=== PATIENT | female | born 1940 | race Caucasian/White ===

== ENCOUNTER 2023-12-25 09:39 | Emergency (ER) | payer MEDICARE, BC, SELFPAY ==
[2023-12-25 09:45] VITALS: BP 154/73; PULSE 76; RESP 18; TEMP 36.4; O2SAT 98; BMI 19.9
--- NOTE | 2023-12-25 10:12 | CRLHL7_ITS ---
For Patients: As a result of the Century Cures Act, medical imaging exams and procedure reports are released immediately into your electronic medical record. You may view this report before your referring provider. If you have questions, please contact your health care provider. INDICATION: Acute stroke, right arm weakness, dizziness. TECHNIQUE: CTA head with contrast bolus tracking, 3D angiographic rendering using maximum intensity projection (MIP) and images permanently archived. FINDINGS: There is scattered intracranial atherosclerotic disease. Right MCA and superior hypophyseal left ICA infundibula are noted, anatomic variants. The right A1 segment is hypoplastic. There is otherwise normal opacification of the intracranial vasculature. There is no large vessel occlusion. IMPRESSION: No large vessel occlusion; no acute intracranial abnormality at CTA. Please note that all CT scans at this facility use dose modulation, iterative reconstruction, and/or weight-based dosing when appropriate to reduce radiation dose to as low as reasonably achievable. Dictated by Santo Posadas MD @ 12/25/2023 2:56:04 PM (Electronically Signed)
--- NOTE | 2023-12-25 10:12 | CRLHL7_ITS ---
For Patients: As a result of the Century Cures Act, medical imaging exams and procedure reports are released immediately into your electronic medical record. You may view this report before your referring provider. If you have questions, please contact your health care provider. INDICATION: Acute stroke, right arm weakness, dizziness. TECHNIQUE: CTA neck with contrast bolus tracking, 3D angiographic rendering using maximum intensity projection (MIP) and images permanently archived. FINDINGS: There is minor bilateral carotid atherosclerosis. Both internal carotid arteries are tortuous and redundant. There is no significant carotid artery stenosis or dissection. There is no significant vertebral artery stenosis or dissection. The soft tissues of the neck are within normal limits. The cervical spine is in normal alignment. Degenerative changes are noted in the cervical spine. IMPRESSION: No significant carotid or vertebral artery stenosis or dissection. Please note that all CT scans at this facility use dose modulation, iterative reconstruction, and/or weight-based dosing when appropriate to reduce radiation dose to as low as reasonably achievable. Dictated by Santo Posadas MD @ 12/25/2023 2:57:24 PM (Electronically Signed)
--- NOTE | 2023-12-25 10:13 | CRLHL7_ITS ---
For Patients: As a result of the Century Cures Act, medical imaging exams and procedure reports are released immediately into your electronic medical record. You may view this report before your referring provider. If you have questions, please contact your health care provider. INDICATION: DIZZINESS, RT ARM WEAKNESS THAT IS IMPROVED. TECHNIQUE: CT head without contrast. COMPARISON: None. FINDINGS: CSF spaces: Within normal limits for age. Brain parenchyma and extra-axial spaces: There is subtle asymmetric hyperdensity of the left posterior thalamus without evident associated peripheral hypodensity or mass effect to suggest the presence of an acute hemorrhage, favored to reflect asymmetric age-related mineralization. The grewal-white differentiation is normal. No sign of mass or midline shift. No extra-axial fluid collection. Skull base and calvarium: The visualized paranasal sinuses and mastoid air cells demonstrate no acute or significant findings. The visualized orbits are grossly unremarkable. No skull fractures. IMPRESSION: No convincing evidence of an acute intracranial hemorrhage, infarct, or mass effect by noncontrast CT. Please note that all CT scans at this facility use dose modulation, iterative reconstruction, and/or weight-based dosing when appropriate to reduce radiation dose to as low as reasonably achievable. Dictated by Ethan Chanel MD @ 12/25/2023 11:32:47 AM (Electronically Signed)
--- NOTE | 2023-12-25 10:17 | ED_ITS ---
HPI - General Adult General Date Seen: 12/25/23 Chief complaint: Dizziness/Vertigo Stated complaint: c/o stroke, dizzy spells, RT arm weakness Time Seen by Provider: 12/25/23 10:01 Source: patient Mode of arrival: ambulatory Limitations: no limitations History of Present Illness HPI narrative: Patient is an 83-year-old female with history of episode of AFib 3 months ago currently on warfarin but no recurrent AFib that she is aware of presenting to the emergency department for dizziness and right arm weakness. She states last night she got up 3 separate times, which is normal for her, and had dizziness with each 1 she states the 1st 1 was severe dizziness lasting about 30 seconds that improved. The next 2 were not nearly as bad she states. She states today she still feels some dizziness with standing up or head movement. She also states she woke up about 06:00 with the right arm weakness that she states was persistent until she got to the emergency department which now she says it is improving significantly. Describes the weakness as her arm feeling heavy but she was able to move it. She last checked INR a week ago and was 2.5. Has had issues of dizziness before and was an inner ear issue which she was given Antivert which improved her symptoms. She states she called the triage line was told to come to emergency department. She is unaware what time her last normal was for both the dizziness and the right long weakness. Denies fevers, chills, chest pain, shortness of breath, abdominal pain, diarrhea, headache, vision changes, numbness. Related Data Home Medications ?Medication ?Instructions ?Recorded ?Confirmed atenolol 25 mg tablet 25 mg PO BID 12/25/23 12/25/23 warfarin 2 mg tablet 5 mg PO DAILY 12/25/23 12/25/23 Previous Rx's ?Medication ?Instructions ?Recorded meclizine 25 mg tablet 25 mg PO QID PRN Dizziness #20 tabs 12/25/23 Allergies Allergy/AdvReac Type Severity Reaction Status Date / Time No Known Drug Allergies Allergy Verified 12/25/23 11:01 Review of Systems Status of ROS: Reports: 10 or more systems reviewed and unremarkable except as noted in History and below PFSH PFSH Social History Smoking Status: Never smoker Do you use any of these nicotine containing products: None How often do you have a drink containing alcohol: never How often do you have six or more drinks on one occasion: Never AUDIT-C Alcohol total score: 0 Non-prescribed substance use: denies use service: No Exam Narrative: Exam Narrative: Const: Well-nourished, Well-developed, in mild distress Eyes: PERRL, no conjunctival injection, and symmetrical lids HENT: Atraumatic external nose and ears. Moist mucous membranes. Neck: Symmetric, trachea midline, No thyromegaly. CVS: RRR, No murmurs or gallops. Peripheral pulses 2+ and equal in all extremities RESP: Unlabored respiratory effort. Clear to auscultation bilaterally. GI: Nontender/Nondistended, No rebound or guarding. MSK:Extremities w/o deformity, Normal Active ROM Skin: Warm, Dry. No rashes or lesions. Neuro: Normal Muscle tone, Cranial nerves 2-12 grossly intact, normal heel-to- perez, normal [id number], normal gait, normal strength 5/5 upper lower extremities bilaterally, normal sensation upper and lower extremities bilaterally, normal rapid alternating movements. NIH stroke scale 0 Psych: Awake, Alert, & Oriented x3. Appropriate mood and affect. Const: Vital Signs, click to edit/add: Vital Signs - 24 hr 12/25/23 09:45 12/25/23 12:00 12/25/23 13:59 Temperature 97.5 F L Pulse Rate [Right Pulse Oximeter] 76 72 76 Respiratory Rate 18 18 16 Blood Pressure [Ri ght Upper Arm] 154/73 H 140/75 H 154/78 H Pulse Oximetry 98 98 95 Oxygen Delivery Me thod Room Air Room Air Room Air Course Vital Signs Vital signs: Initial Vital Signs Temperature 97.5 F L 12/25/23 09:45 Temperature Source Temporal Artery Scan 12/25/23 09:45 Pulse Rate 76 12/25/23 09:45 Respiratory Rate 18 12/25/23 09:45 Blood Pressure 154/73 H 12/25/23 09:45 Blood Pressure Mean 100 12/25/23 09:45 Blood Pressure Position Sitting 12/25/23 09:45 Pulse Oximetry 98 12/25/23 09:45 Oxygen Delivery Method Room Air 12/25/23 09:45 Vital Signs Temperature 97.5 F L 12/25/23 09:45 Pulse Rate 76 12/25/23 09:45 Respiratory Rate 18 12/25/23 09:45 Blood Pressure 154/73 H 12/25/23 09:45 Pulse Oximetry 98 12/25/23 09:45 Oxygen Delivery Method Room Air 12/25/23 09:45 Temperature 97.5 F L 12/25/23 09:45 Pulse Rate 76 12/25/23 13:59 Respiratory Rate 16 12/25/23 13:59 Blood Pressure 154/78 H 12/25/23 13:59 Pulse Oximetry 95 12/25/23 13:59 Oxygen Delivery Method Room Air 12/25/23 13:59 Medications Administered Medications: Discontinued Medications Generic Name Dose Route Start Last Admin Trade Name Freq PRN Reason Stop Dose Admin Meclizine HCl 25 mg 12/25/23 13:34 12/25/23 13:47 Meclizine Hcl 25 Mg Tablet PO 12/25/23 13:35 25 mg ONCE ONE Administration Medical Decision Making [facility] Narrative Medical decision making narrative: Patient is an 83-year-old female who presents to the emergency department for dizziness and right arm weakness. The differential diagnosis of vertigo is broad and includes common etiologies such as menieres disease, labyrinthitis, benign positional vertigo, otitis media, etc. More serious etiologies considered include central etiologies such as tumor, intracerebral bleed, dis section, ischemic cerebral vascular accident. Considering her dizziness only occurs with movement this seems unlikely to be intracranial but she is also having this right arm weakness that has since resolved her will do a CT and CTA the right arm. Considering improving symptoms and she is unsure when his symptoms started code stroke is not necessary at this time. Will also order a CBC, BMP, COVID/flu, magnesium, urinalysis, troponin, INR, EKG. Lab work all returned showing no concerning abnormalities. Her INR is at 2.01. Urine shows no signs of UTI. COVID flu were negative. Troponin an EKG showed no concerning findings. CT head and CTA head and neck showed no acute concerning abnormalities. Still has some mild dizziness when she gets up and an MRI was ordered. This MRI returned showing no concerning abnormalities. At This point meclizine was given. She is now asymptomatic he was able walk around the department without issues. I speak to the on-call neurologist through [facility] and I explained to him the situation and he does not recommend any changes to her medication at this time. She will follow up outpatient with her primary care provider. I will give her prescription for Antivert. She is agreeable to this plan. Will be discharged Lab Data Labs: Lab Results 12/25/23 12/25/23 12/25/23 Range/Units 10:13 10:25 Unknown WBC 4.38 L (4.50-11.00) K/uL RBC 4.29 (4.00-5.20) m/uL Hgb 12.6 (12.0-16.0) gm/dL Hct 39.2 (33.0-51.0) % MCV 91 (80-100) fL MCH 29 (26-34) pg MCHC 32 (32-36) gm/dL RDW Coeff of Heather 13.6 (11.5-15.5) % Plt Count 159 (140-440) K/uL Neut % (Auto) 58.1 (42.0-72.0) % Lymph % (Auto) 29.5 (20-44) % [place] % (Auto) 9.4 (0.0-11.0) % Eos % (Auto) 2.1 (0.0-7.0) % Baso % (Auto) 0.7 (0.0-3.0) % Neut # (Auto) 2.50 (1.7-7.0) K/uL Lymph # (Auto) 1.30 (0.90-2.90) K/uL [place] # (Auto) 0.40 (0.00-0.90) K/UL Eos # (Auto) 0.10 (0.00-0.50) K/uL Baso # (Auto) 0.00 (0.00-0.30) K/uL Abs Immat Gran (auto) 0.00 (0.00-0.30) K/uL Imm/Tot Granulo (auto) 0.2 % INR 2.01 H (0.91-1.10) Sodium 136 (135-149) mmol/L Potassium 3.8 (3.6-5.1) mmol/L Chloride 102 (96-114) mmol/L Carbon Dioxide 28 (20-32) mmol/L Anion Gap 6 L (7-15) mEq/L BUN 21 (7-30) mg/dL Creatinine 1.0 (0.5-1.5) mg/dL Estimated Creat Clear 39.44 Estimated GFR 56 ml/min Glucose 134 H (60-115) mg/dL Calcium 8.8 (8.4-10.6) mg/dL Magnesium 2.1 (1.5-2.6) mg/dL Urine Color Yellow (Yellow) Urine Appearance Clear (Clear) Urine pH 7.0 (5.0-8.5) Ur Specific [place] 1.010 (1.000-1.030) Urine Protein Negative (Negative) Urine Glucose (UA) Negative (Negative) Urine Ketones Negative (Negative) Urine Blood Trace-intact A (Negative) Urine Nitrite Negative (Negative) Urine Bilirubin Negative (Negative) Urine Urobilinogen 0.2 (0.2-1.0) Ur Leukocyte Esterase 1+ A (Negative) Urine RBC 0-2 (0-2) Urine WBC 0-2 (0-5) Ur Squamous Epith Cells Few (None-Few) Urine Bacteria None (None) SARS-CoV-2 (PCR) Negative SARS-CoV-2 (Negative) Influenza Type A (PCR) Negative PCR FLU A (Negative) Influenza Type B (PCR) Negative PCR FLU B (Negative) POC Troponin I 0.01 (0.01-0.04) ng/ml Imaging Data CT scan head: Attestation: I have reviewed the pertinent imaging results. Radiologist's impression: No convincing evidence of an acute intracranial hemorrhage, infarct, or mass effect by noncontrast CT. Please note that all CT scans at this facility use dose modulation, iterative reconstruction, and/or weight-based dosing when appropriate to reduce radiation dose to as low as reasonably achievable. Dictated by Ethan Chanel MD @ 12/25/2023 11:32:47 AM MR brain: Attestation: I have reviewed the pertinent imaging results. Radiologist's impression: No acute intracranial process identified. Dictated by Dawna Tony MD @ 12/25/2023 1:27:22 PM CTA head: Attestation: I have reviewed the pertinent imaging results. Radiologist's impression: No large vessel occlusion; no acute intracranial abnormality at CTA. Please note that all CT scans at this facility use dose modulation, iterative reconstruction, and/or weight-based dosing when appropriate to reduce radiation dose to as low as reasonably achievable. Dictated by Santo Posadas MD @ 12/25/2023 2:56:04 PM CTA neck: Attestation: I have reviewed the pertinent imaging results. Radiologist's impression: No significant carotid or vertebral artery stenosis or dissection. Please note that all CT scans at this facility use dose modulation, iterative reconstruction, and/or weight-based dosing when appropriate to reduce radiation dose to as low as reasonably achievable. Dictated by Snato Posadas MD @ 12/25/2023 2:57:24 PM ECG Data Attestation: I personally reviewed and interpreted this ECG as follows: Prior ECG tracings: not available for review Interpretation: Normal sinus rhythm the rate 75 beats per minute, normal intervals, normal axis, no ST or T-wave abnormalities. Discharge Plan Discharge Clinical Impression: Dizziness, Arm weakness Patient Disposition: Home, Self-Care Condition: Improved Instructions: Dizziness (ED) Additional Instructions: Neurologist do not want starting any new medications but do think you should follow-up with your primary care provider about possible changing of the medication. I cannot say for certain if he had TIA or not and speak to your primary care provider about that. Return to emergency department for any new or worsening symptoms. He can use the Antivert as needed for your dizziness. Prescriptions: New meclizine 25 mg tablet 25 mg PO QID PRN (Reason: Dizziness) Qty: 20 0RF No Action atenolol 25 mg tablet 25 mg PO BID warfarin 2 mg tablet 5 mg PO DAILY Follow Up/Referrals: Cary Centeno MD [Primary Care Provider] - Stand Alone Forms: [employer] Info Instructions
[2023-12-25 10:32] LABS: Basophils Percent Auto 0.7 % (0.0-3.0); Eosinophils Percent Auto 2.1 % (0.0-7.0); Hematocrit 39.2 % (33.0-51.0); Hemoglobin* 12.6 gm/dL (12.0-16.0); Immature Granulocytes Pct Auto 0.2 %; Lymphocytes Percent Auto 29.5 % (20-44); Mean Corpuscular HGB Conc 32 gm/dL (32-36); Mean Corpuscular Hemoglobin 29 pg (26-34); Mean Corpuscular Volume 91 fL (80-100); Monocytes Percent Auto 9.4 % (0.0-11.0); Neutrophils Percent Auto 58.1 % (42.0-72.0); Platelet Count* 159 K/uL (140-440); RDW Coefficient of Variation % 13.6 % (11.5-15.5); Red Blood Count 4.29 m/uL (4.00-5.20); White Blood Count* 4.38 K/uL (4.50-11.00)
[2023-12-25 10:34] LABS: Slide Review Reflex No
[2023-12-25 10:44] LABS: Chloride* 102 mmol/L (96-114)
[2023-12-25 10:45] LABS: Potassium* 3.8 mmol/L (3.6-5.1); Sodium* 136 mmol/L (135-149)
[2023-12-25 10:48] LABS: Anion Gap 6 mEq/L (7-15); Blood Urea Nitrogen* 21 mg/dL (7-30); Carbon Dioxide* 28 mmol/L (20-32); Est. Creatinine Clearance* 39.44; Estimated Glomerular Filt Rate 56 ml/min; Glucose* 134 mg/dL (60-115); INR 2.01 (0.91-1.10); Prothrombin Time 24.2 Seconds
[2023-12-25 10:49] LABS: Calcium* 8.8 mg/dL (8.4-10.6); Magnesium* 2.1 mg/dL (1.5-2.6)
[2023-12-25 10:54] LABS: Troponin, Point-of-Care* 0.01 ng/ml (0.01-0.04)
[2023-12-25 11:12] LABS: PCR FLU A Negative PCR FLU A (Negative); PCR FLU B Negative PCR FLU B (Negative); SARS PCR* Negative SARS-CoV-2 (Negative)
[2023-12-25 11:46] LABS: Appearance Urine Clear (Clear); Bilirubin Urine Negative (Negative); Blood Urine Trace-intact (Negative); Color Urine Yellow (Yellow); Glucose Urine Negative (Negative); Ketones Urine Negative (Negative); Leukocyte Esterase Urine 1+ (Negative); Nitrite Urine Negative (Negative); Protein Urine Negative (Negative); Urobilinogen Urine 0.2 (0.2-1.0)
[2023-12-25 11:56] LABS: RBC Urine 0-2 (0-2); Squamous Epithelial Cell Urine Few (None-Few); WBC Urine 0-2 (0-5)
[2023-12-25 12:00] VITALS: BP 140/75; PULSE 72; RESP 18; O2SAT 98
--- NOTE | 2023-12-25 12:15 | CRLHL7_ITS ---
For Patients: As a result of the Century Cures Act, medical imaging exams and procedure reports are released immediately into your electronic medical record. You may view this report before your referring provider. If you have questions, please contact your health care provider. INDICATION: : dizziness and resolved right arm weakness COMPARISON: : None TECHNIQUE: : MRI of the brain without contrast. FINDINGS: : BRAIN PARENCHYMA: No acute infarct or hemorrhage. no mass effect or herniation. Minimal white matter chronic small vessel ischemic changes. Perivascular space in the right basal ganglia. Punctate old hemorrhage in the left internal capsule (06/23; ). This likely contains hemosiderin with susceptibility artifact noted on the susceptibility weighted imaging. There is also mild artifact identified on the diffusion-weighted imaging in this punctate region. VENTRICLES/EXTRA-AXIAL SPACES: No hydrocephalus or extra-axial fluid collections. FLOW VOIDS: Intact. SINUSES/MASTOIDS: Clear. EXTRACRANIAL STRUCTURES: Visualized structures are unremarkable. IMPRESSION: No acute intracranial process identified. Dictated by Dawna Tony MD @ 12/25/2023 1:27:22 PM (Electronically Signed)
[2023-12-25] MEDS: MECLIZINE HCL 25 MG TABLET PO (13:47)
[2023-12-25 13:59] VITALS: BP 154/78; PULSE 76; RESP 16; O2SAT 95
== END 2023-12-25 14:42 | disposition home or self-care (01) ==
PROVIDERS: Emergency Provider Student in an Organized Health Care Education/Training Program; PCP Family Medicine
DX: R42 Dizziness and giddiness (principal); R53.1 Weakness; Z79.01 Long term (current) use of anticoagulants
CPT/HCPCS: 36415; 70450; 70496; 70498; 70551; 80048; 81001; 83735; 84484; 85025; 85610; 87086; 87631; 93005; 99283; 99284; 99285; A9270; Q9967